=== PATIENT | male | born 1955 | race Caucasian/White ===

== ENCOUNTER 2018-07-02 12:13 | Outpatient (CLI) | END 2018-07-02 12:14 | disposition home or self-care (01) | LOC: RHC-LAB 12:13 → FCC-LAB 12:14 | PROVIDERS: ATTEND Family Medicine | DX: E78.5 Hyperlipidemia, unspecified (principal); E11.65 Type 2 diabetes mellitus with hyperglycemia; I10 Essential (primary) hypertension; Z12.5 Encounter for screening for malignant neoplasm of prostate | CPT/HCPCS: 36415; 80053; 80061; 82043; 83037; 85025 ==

== ENCOUNTER 2018-10-14 10:10 | Outpatient (CLI) | payer OTHER | END 2018-10-14 10:11 | disposition home or self-care (01) | LOC: RHC-LAB 10:10 → FCC-LAB 10:11 | PROVIDERS: ATTEND Family Medicine | DX: E11.65 Type 2 diabetes mellitus with hyperglycemia (principal); E78.00 Pure hypercholesterolemia, unspecified | CPT/HCPCS: 36415; 80061; 83037 ==

== ENCOUNTER 2019-01-14 10:23 | Outpatient (CLI) | payer OTHER | END 2019-01-14 10:24 | disposition home or self-care (01) | LOC: RHC-LAB 10:23 → FCC-LAB 10:24 | PROVIDERS: ATTEND Family Medicine | DX: E11.65 Type 2 diabetes mellitus with hyperglycemia (principal) | CPT/HCPCS: 36415; 80053; 80061; 83037 ==